=== PATIENT | female | born 1995 | race Caucasian/White ===

== ENCOUNTER 2022-07-30 15:13 | Outpatient (REF) | payer MEDICAID, SELFPAY ==
[2022-07-30 18:17] LABS: MANUAL DIFF FLAG NO
[2022-07-30 18:35] LABS: Basophils Percent Auto 0.4 % (0-2); Eosinophils Absolute Auto 0.1 X10*3/uL (0.0-0.4); Eosinophils Percent Auto 0.5 % (0-4); Hematocrit 41.3 % (37.0-47.0); Hemoglobin 13.8 g/dl (12.0-16.0); Imm Gran Abs Auto 0.03 X10*3/uL (0.00-0.03); Imm Gran Pct Auto 0.3 % (0.0-0.4); Lymphocytes Percent Auto 32.2 % (20-40); Mean Corpuscular HGB Conc 33.4 g/dl (31.0-35.0); Mean Corpuscular Hemoglobin 29.4 pg (27.0-33.0); Mean Corpuscular Volume 87.9 fL (80.0-98.0); Mean Platelet Volume 12.3 fL (9.4-12.3); Monocytes Absolute Auto 0.6 X10*3/uL (0.1-1.2); Monocytes Percent Auto 6.4 % (2-11); Neutrophils Absolute Auto 5.6 x10*3/uL (2.0-8.3); Neutrophils Percent Auto 60.2 % (45-73); Platelet Count 230 X10*3/uL (160-400); White Blood Count 9.3 X10*3/uL (4.8-10.8)
[2022-07-30 18:58] LABS: Alanine Aminotransferase 20 U/L (0-31); Albumin Level 4.2 g/dL (3.5-5.0); Alkaline Phosphatase 55 U/L (39-117); Anion Gap 12 (12-20); Aspartate Amino Transferase 17 U/L (5-31); Bilirubin Total 0.6 mg/dL (0.0-1.0); Blood Urea Nitrogen 14 mg/dL (9-16); Calcium 9.3 mg/dL (8.4-10.2); Carbon Dioxide 24 mmol/L (22-29); Chloride 106 mmol/L (96-108); Estimated Glomerular Filt Rate > 60; Ferritin 50 ng/mL (10-122); Free T4 (Free Thyroxine) 1.22 ng/dL (0.71-1.85); Glucose Random 79 mg/dL (60-115); Iron 72 mcg/dL (30-160); Percent Iron Saturation 27 % (15-50); Potassium 3.7 mmol/L (3.3-5.1); Sodium 138 mmol/L (135-145); Total Iron Binding Capacity 270 mcg/dL (228-428); Total Protein 7.3 g/dL (6.5-8.0); Unsaturated Iron Binding 198 ug/dL; Vitamin D 25-OH Total 38.8 ng/mL (>30)
[2022-07-30 19:05] LABS: Erythrocyte Sedimentation Rate 7 MM/HR (0-20)
[2022-07-30 19:09] LABS: Vitamin B12 872 pg/mL (200-900)
[2022-07-31 02:01] LABS: CT PCR NOT DETECTED (Not Detect.); NG PCR NOT DETECTED (Not Detect.)
[2022-08-01 06:50] LABS: Syphilis Screen Nonreactive (Nonreactive)
[2022-08-01 07:25] LABS: HBsAGNum1 0.32 S/CO (0.00-0.99); HIV AB/AG Nonreactive (Nonreactive); HIV Num 1 0.08 S/CO (0.00-0.99); Hepatitis B Surface Antigen Negative (Negative)
== END 2022-07-30 15:14 | disposition home or self-care (01) ==
LOC: HO.MANLDS 15:13
PROVIDERS: Visit Provider Physician Assistant
DX: Z11.3 Encounter for screening for infections with a predominantly sexual mode of transmission (principal); Z11.4 Encounter for screening for human immunodeficiency virus [HIV]; R53.83 Other fatigue
CPT/HCPCS: 80053; 82306; 82607; 82728; 82746; 83540; 84439; 84443; 85025; 85652; 86780; 87340; 87389; 87491; 87591